=== PATIENT | male | born 2000 | race Caucasian/White ===

== ENCOUNTER → 2020-12-28 | Outpatient (CLI) | payer OTHER ==
[2020-12-28 15:48] LABS: CHOLESTEROL 154 mg/dL (<200); TRIGLYCERIDES 64 mg/dl (<150)
[2020-12-28 15:50] LABS: LDL CHOLESTEROL 79 mg/dL (9-159)
== END | disposition home or self-care (01) ==
LOC: LAB 13:24
PROVIDERS: ATTEND Family Medicine
DX: Z13.1 Encounter for screening for diabetes mellitus (principal); Z13.220 Encounter for screening for lipoid disorders